=== PATIENT | female | born 1985 | race Caucasian/White ===

== ENCOUNTER 2019-02-11 07:38 | Emergency (ER) | payer OTHER ==
[2019-02-11 08:17] LABS: URINE BLOOD (Dip) POC Trace-intact (NEGATIVE); URINE GLUCOSE (Dip) POC Negative (NEGATIVE); URINE KETONES (Dip) POC Negative (NEGATIVE); URINE LEUKOCYTE EST (Dip) POC Trace (NEGATIVE); URINE NITRITE (Dip) POC Negative (NEGATIVE); URINE TOTAL PROTEIN POC Trace (NEGATIVE)
== END 2019-02-11 09:09 | disposition home or self-care (01) ==
LOC: FTE 07:38
DX: R30.0 Dysuria (principal)
CPT/HCPCS: 81003; 81025; 99283